=== PATIENT | male | born 1995 | race African-American/Black ===

== ENCOUNTER 2018-10-16 20:45 | Emergency (ER) | payer SELFPAY ==
[~2018-10-16] VITALS: Ht 177.8 cm; Wt 59.0 kg
[2018-10-16 22:53] LABS: BASO # 0.1 x10^3/uL (0.0-0.2); BASO % 1 % (0-3); EOS # 0.1 x10^3/uL (0.0-0.7); EOS % 1 % (0-3); HEMATOCRIT 39.8 % (39.0-53.0); HEMOGLOBIN 13.8 g/dL (13.0-17.5); LYMPH # 1.8 x10^3/uL (1.0-4.8); LYMPH % 16 % (24-48); MEAN CORPUSCULAR HEMOGLOBIN 32 pg (25-35); MEAN CORPUSCULAR HGB CONC 35 g/dL (31-37); MEAN CORPUSCULAR VOLUME 92 fL (79-100); MONO # 0.6 x10^3/uL (0.0-1.1); MONO % 5 % (0-9); NEUT # 8.7 x10^3/uL (1.8-7.7); NEUT % 78 % (31-73); PLATELET COUNT 289 x10^3/uL (140-400); RED BLOOD COUNT 4.34 x10^6/uL (4.30-5.70); RED CELL DISTRIBUTION WIDTH 13.1 % (11.5-14.5); WHITE BLOOD COUNT 11.2 x10^3/uL (4.0-11.0)
[2018-10-16] MEDS ORDERED: AZITHROMYCIN 250 MG TABLET. PO ONE (23:00)
[2018-10-16] MEDS ORDERED: KETOROLAC 15 MG/ML VIAL. IV ONE (23:00)
[2018-10-16] MEDS ORDERED: cefTRIAXone IM 250 MG VIAL IM ONE (23:00)
[2018-10-16] MEDS ORDERED: IV NORMAL SALINE 1000ML BAG 1,000 ML IV ONE (23:00)
[2018-10-16] MEDS ORDERED: ACETAMINOPHEN 500 MG TABLET PO ONE (23:00)
[2018-10-16 23:01] LABS: CALCIUM 8.9 mg/dL (8.5-10.1); GFR 113.1; POTASSIUM 4.1 mmol/L (3.5-5.1)
[2018-10-16 23:06] LABS: ALBUMIN 3.8 g/dL (3.4-5.0); MAGNESIUM 1.7 mg/dL (1.8-2.4); TOTAL BILIRUBIN 0.8 mg/dL (0.2-1.0); TOTAL PROTEIN 7.7 g/dL (6.4-8.2)
--- NOTE | 2018-10-16 23:08 | PHYS DOC ---
Past Medical History Past Medical History: Migraines Past Surgical History: No Surgical History Alcohol Use: None Drug Use: None Adult General Chief Complaint Chief Complaint: TESTICULAR PAIN OR INJURY HPI HPI Patient is a 23 year old male who presents with testicular pain. Pt reports having pain in his right testicle starting 2 days ago. Denies any trauma and the pain started sudden. Prior to his pain, pt endorses having some urethral discharge started a few days prior to the onset of his pain. The discharge was w ruth, yellow and mucous. He had hx of gonorrhea and chlamydia which was treated for last yr. Pt's also mentions that he has had a fever at home for which she gave him some ibuprofen. Pt also reports mild lower abdominal tenderness yesterday which is nor reproducible on assessment in ED. Denies any dysuria. Review of Systems Review of Systems Constitutional: Positve fever or chills Eyes: Denies redness or eye pain HENT: Denies nasal congestion or sore throat Respiratory: Denies cough or shortness of breath Cardiovascular: Denies chest pain or palpitations GI: Denies abdominal pain, nausea, or vomiting : Denies dysuria or hematuria Musculoskeletal: Mild back pain.No joint pain Integument: Denies rash or skin lesions Neurologic: Denies headache, focal weakness or sensory changes Complete systems were reviewed and found to be within normal limits, except as documented in this note. Current Medications Current Medications Current Medications Medications (Trade) Dose Ordered Sig/Mario Start Time Stop Time Status Last Admin Dose Admin Acetaminophen (Tylenol) 500 mg 1X ONCE 10/16/18 23:00 10/16/18 23:01 DC 10/16/18 23:06 500 MG Azithromycin (Zithromax) 1,000 mg 1X ONCE 10/16/18 23:00 10/16/18 23:01 DC 10/16/18 23:06 1,000 MG Ceftriaxone Sodium (Rocephin Im) 250 mg 1X ONCE 10/16/18 23:00 10/16/18 23:01 DC 10/16/18 23:41 250 MG Ketorolac Tromethamine (Toradol 15mg Vial) 15 mg 1X ONCE 10/16/18 23:00 10/16/18 23:01 DC 10/16/18 23:06 15 MG Magnesium Chloride (Mag Delay) 64 mg 1X ONCE 10/17/18 00:30 10/17/18 00:31 DC 10/17/18 00:26 64 MG Sodium Chloride 1,000 ml @ 1,000 mls/hr 1X ONCE 10/16/18 23:00 10/16/18 23:59 DC 10/16/18 23:50 1,000 MLS/HR Allergies Allergies Allergies Coded Allergies Type Severity Reaction Last Updated Verified No Known Drug Allergies 10/16/18 No Physical Exam Physical Exam Constitutional: Well developed, well nourished, no acute distress, non-toxic appearance HENT: Normocephalic, atraumatic, oropharynx moist Eyes: PERRL, EOMI, conjunctiva normal, no discharge Neck: Normal range of motion, no tenderness, supple Cardiovascular: Heart rate normal, regular rhythm Lungs & Thorax: Bilateral breath sounds clear to auscultation, no wheezing Abdomen: Soft, no tenderness Skin: Warm, dry, no erythema, no rash Back: No tenderness, no CVA tenderness Extremities: No tenderness, ROM intact, no edema Neurologic: Alert and oriented X 3, normal motor function, normal sensory function, no focal deficits noted Psychologic: Affect normal, judgement normal, mood normal Current Patient Data Vital Signs Vital Signs Date Time Temp Pulse Resp B/P (MAP) Pulse Ox O2 Delivery O2 Flow Rate FiO2 10/17/18 00:27 86 20 137/73 (94) 99 Room Air 10/16/18 21:15 102.2 102.2 Lab Values Laboratory Tests Test 10/16/18 22:30 10/16/18 23:45 White Blood Count 11.2 x10^3/uL (4.0-11.0) H Red Blood Count 4.34 x10^6/uL (4.30-5.70) Hemoglobin 13.8 g/dL (13.0-17.5) Hematocrit 39.8 % (39.0-53.0) Mean Corpuscular Volume 92 fL (79-100) Mean Corpuscular Hemoglobin 32 pg (25-35) Mean Corpuscular Hemoglobin Concent 35 g/dL (31-37) Red Cell Distribution Width 13.1 % (11.5-14.5) Platelet Count 289 x10^3/uL (140-400) Neutrophils (%) (Auto) 78 % (31-73) H Lymphocytes (%) (Auto) 16 % (24-48) L Monocytes (%) (Auto) 5 % (0-9) Eosinophils (%) (Auto) 1 % (0-3) Basophils (%) (Auto) 1 % (0-3) Neutrophils # (Auto) 8.7 x10^3/uL (1.8-7.7) H Lymphocytes # (Auto) 1.8 x10^3/uL (1.0-4.8) Monocytes # (Auto) 0.6 x10^3/uL (0.0-1.1) Eosinophils # (Auto) 0.1 x10^3/uL (0.0-0.7) Basophils # (Auto) 0.1 x10^3/uL (0.0-0.2) Sodium Level 141 mmol/L (136-145) Potassium Level 4.1 mmol/L (3.5-5.1) Chloride Level 102 mmol/L (98-107) Carbon Dioxide Level 26 mmol/L (21-32) Anion Gap 13 (6-14) Blood Urea Nitrogen 10 mg/dL (8-26) Creatinine 1.0 mg/dL (0.7-1.3) Estimated GFR (Cockcroft-Gault) 113.1 BUN/Creatinine Ratio 10 (6-20) Glucose Level 148 mg/dL (70-99) H Lactic Acid Level 1.2 mmol/L (0.4-2.0) Calcium Level 8.9 mg/dL (8.5-10.1) Magnesium Level 1.7 mg/dL (1.8-2.4) L Total Bilirubin 0.8 mg/dL (0.2-1.0) Aspartate Amino Transferase (AST) 11 U/L (15-37) L Alanine Aminotransferase (ALT) 13 U/L (16-63) L Alkaline Phosphatase 78 U/L (46-116) Total Protein 7.7 g/dL (6.4-8.2) Albumin 3.8 g/dL (3.4-5.0) Albumin/Globulin Ratio 1.0 (1.0-1.7) Urine Collection Type Unknown Urine Color Yellow Urine Clarity Clear Urine pH 7.0 Urine Specific Halsey 1.010 Urine Protein Negative mg/dL (NEG-TRACE) Urine Glucose (UA) Negative mg/dL (NEG) Urine Ketones (Stick) Negative mg/dL (NEG) Urine Blood Negative (NEG) Urine Nitrite Negative (NEG) Urine Bilirubin Negative (NEG) Urine Urobilinogen Dipstick 2.0 mg/dL (0.2 mg/dL) Urine Leukocyte Esterase Large (NEG) Urine RBC 0 /HPF (0-2) Urine WBC Tntc /HPF (0-4) Urine Squamous Epithelial Cells Occ /LPF Urine Transitional Epithelial Cells Few /LPF Urine Bacteria 0 /HPF (0-FEW) Urine Mucus Mod /LPF Laboratory Tests 10/16/18 22:30 Laboratory Tests 10/16/18 22:30 EKG EKG [] Radiology/Procedures Radiology/Procedures PROCEDURE: TESTICULAR/SCROTUM Ultrasound of the scrotum. HISTORY: Right testicular pain and swelling. Ultrasound was used to evaluate the testicles and scrotum. There is a right hydrocele which is moderate in size. Right testicle is within normal limits in size and appearance without a mass. Epididymis on the right is prominent. There is increased flow with color imaging and Doppler in the right epididymis and testicle suggesting a epididymitis. Left testicle is normal in size and appearance. There is normal flow to the left testicle with color imaging and Doppler. Left epididymis is normal in appearance. There is not evidence of torsion. IMPRESSION: 1. Enlarged right epididymis with increased blood flow suggesting epididymitis. 2. Negative for evidence of torsion. 3. Right hydrocele. Electronically signed by: Rayray Moore MD (10/17/2018 12:10 AM) [id number] Course & Med Decision Making Course & Med Decision Making Pertinent Labs and Imaging studies reviewed. (See chart for details) 23 yo male presents with testicular pain. Ddx: epididymitis vs testicular torsion vs UTI vs others. His labs result show mildly elevated WBC at 11.2 and UA reveals pyuria. US of the right testicle suggest epididymitis and negative for torsion. Pt was given antibiotics and analgesics in the ED and have culture sent out. Patient stable for discharge with outpatient follow-up with PCP. Discussed findings and plan with patient and family, who acknowledge understanding and agreement. Dragon Disclaimer Dragon Disclaimer This electronic medical record was generated, in whole or in part, using a voice recognition dictation system. Departure Departure Impression: Primary Impression: Acute epididymitis Additional Impressions: Hydrocele in adult Hypomagnesemia Disposition: 01 HOME, SELF-CARE Condition: STABLE Referrals: NO PCP (PCP) ANAST,CLARENCE W MD Patient Instructions: Epididymitis, Hypomagnesemia Scripts Doxycycline Monohydrate (DOXYCYCLINE MONOHYDRATE) 100 Mg Capsule 1 CAP PO BID for 10 Days, #20 CAP Prov: DARIA TERRY DO 10/17/18 Problem Qualifiers DARIA TERRY DO Oct 16, 2018 23:08
[2018-10-17 00:03] LABS: BILIRUBIN,URINE NEGATIVE (NEG); CLARITY,URINE CLEAR; COLOR,URINE YELLOW; NITRITE,URINE NEGATIVE (NEG); PROTEIN,URINE NEGATIVE (NEG-TRACE)
[2018-10-17 00:10] LABS: BACTERIA,URINE 0 /HPF (0-FEW); RBC,URINE 0 /HPF (0-2); SQUAMOUS EPITHELIAL CELL,UR OCC /LPF; WBC,URINE TNTC /HPF (0-4)
--- NOTE | 2018-10-17 00:14 | RAD ---
Ultrasound of the scrotum. HISTORY: Right testicular pain and swelling. Ultrasound was used to evaluate the testicles and scrotum. There is a right hydrocele which is moderate in size. Right testicle is within normal limits in size and appearance without a mass. Epididymis on the right is prominent. There is increased flow with color imaging and Doppler in the right epididymis and testicle suggesting a epididymitis. Left testicle is normal in size and appearance. There is normal flow to the left testicle with color imaging and Doppler. Left epididymis is normal in appearance. There is not evidence of torsion. IMPRESSION: 1. Enlarged right epididymis with increased blood flow suggesting epididymitis. 2. Negative for evidence of torsion. 3. Right hydrocele. Electronically signed by: Rayray Moore MD (10/17/2018 12:10 AM) [id number]
[2018-10-17 00:27] VITALS: BP 137/73
[2018-10-17] MEDS ORDERED: MAGNESIUM CHLORIDE ER 64 MG TABLET.ER PO ONE (00:30)
[2018-10-17] MEDS ORDERED: DOXY100C14 PO (00:37)
== END 2018-10-17 00:50 | disposition home or self-care (01) ==
LOC: ER 20:45
DX: N45.1 Epididymitis (principal); N43.3 Hydrocele, unspecified; E83.42 Hypomagnesemia; G43.909 Migraine, unspecified, not intractable, without status migrainosus
CPT/HCPCS: 36415; 76870; 80053; 81001; 83605; 83735; 85025; 87086; 87491; 87591; 96372; 96374; 99285; J0696; J1885; J7030; Q0144